=== PATIENT | female | born 1985 | race Caucasian/White ===

== ENCOUNTER 2017-04-19 19:31 | Emergency (ER) | payer OTHER ==
[~2017-04-19 19:31] MED LIST: CIPRO PO; NO MEDICATIONS
[2017-04-19 20:57] LABS: URINE SOURCE CLEAN CATCH
[2017-04-19 20:59] LABS: URINE APPEARANCE CLEAR; URINE BILIRUBIN NEG (NEG); URINE BLOOD NEG (NEG); URINE COLOR YELLOW; URINE GLUCOSE NEG (NORM); URINE KETONE NEG (NEG); URINE LEUKOCYTE ESTERASE NEG (NEG); URINE NITRATE NEG (NEG); URINE PH 5.5 (5-8); URINE PROTEIN NEG (NEG); URINE SPECIFIC GRAVITY >=1.030 (1.003-1.035); URINE UROBILINOGEN 0.2 MG/DL (NORM)
[2017-04-19 21:05] LABS: MICRO INDICATED? NO
== END 2017-04-19 22:00 | disposition home or self-care (01) ==
LOC: SED 19:31
PROVIDERS: Nurse Practitioner
DX: M54.41 Lumbago with sciatica, right side (principal); Z90.49 Acquired absence of other specified parts of digestive tract; F17.210 Nicotine dependence, cigarettes, uncomplicated
CPT/HCPCS: 81003; 84703; 96372; 99283; J1885

== ENCOUNTER 2017-05-02 01:15 | Emergency (ER) | payer OTHER | END 2017-05-02 02:43 | disposition home or self-care (01) | LOC: SED 01:15 | DX: B34.9 Viral infection, unspecified (principal); Z90.49 Acquired absence of other specified parts of digestive tract; F17.210 Nicotine dependence, cigarettes, uncomplicated | CPT/HCPCS: 99284 ==